=== PATIENT | female | born 1985 | race Caucasian/White ===

== ENCOUNTER 2017-01-28 16:41 | Emergency (ER) | payer OTHER ==
[2017-01-28 18:00] LABS: HEMOGLOBIN 13.4 gm/dl (12.3-15.3); RED BLOOD COUNT 4.87 M/UL (4.00-5.10); WHITE BLOOD COUNT 9.3 K/UL (4.5-11.0)
[2017-01-28 18:18] LABS: BUN/CREATININE RATIO 11 (0-10)
[2017-04-17] MEDS ORDERED: IBUPROFEN600 MG PO (15:37)
[2017-04-17] MEDS ORDERED: ADIPEX-P37.5 M1 PO (15:38)
[2017-04-17] MEDS ORDERED: MELATONIN5 M2 PO (15:38)
[2017-04-20] MEDS ORDERED: ZOFRAN4 MG PO (13:37)
[2017-04-20] MEDS ORDERED: OXYCODONE HCL5 MG PO (13:39)
== END 2017-01-28 20:30 | disposition home or self-care (01) ==
LOC: ER1 16:41
PROVIDERS: Nurse Practitioner Family
DX: R10.9 Unspecified abdominal pain (principal); Z88.5 Allergy status to narcotic agent
CPT/HCPCS: 36415; 80053; 81001; 82150; 83690; 84703; 85025; 87086; 96374; 96375; 99284; J1885; J2405; J7030

== ENCOUNTER → 2017-01-28 | Outpatient (CLI) | payer OTHER ==
[~2017-01-28] MED LIST: ADIPEX-P37.5 M1 PO; IBUPROFEN600 MG PO; MELATONIN5 M2 PO; OXYCODONE HCL5 MG PO; ZOFRAN4 MG PO
== END ==
LOC: KOH-I 10:01
DX: M20.001 Unspecified deformity of right finger(s) (principal); R93.7 Abnormal findings on diagnostic imaging of other parts of musculoskeletal system
CPT/HCPCS: 73220; 73223; A9577

== ENCOUNTER → 2017-04-20 | Day surgery (SDC) | payer OTHER ==
[~2017-04-20] VITALS: Ht 154.9 cm; Wt 67.1 kg
== END | disposition home or self-care (01) ==
LOC: OR 07:45
PROVIDERS: Orthopaedic Surgery
PROC: 0XQSXZZ Repair Right Ring Finger, External Approach (ICD-10-PCS; principal; 2017-04-20 11:15)
DX: M20.021 Boutonniere deformity of right finger(s) (principal); M19.041 Primary osteoarthritis, right hand; Z87.01 Personal history of pneumonia (recurrent); Z82.49 Family history of ischemic heart disease and other diseases of the circulatory system; Z88.5 Allergy status to narcotic agent; Z79.899 Other long term (current) drug therapy
CPT/HCPCS: 73120; 76000; 84703; C1763; J0690; J2250; J3010; J7120